=== PATIENT | male | born 1965 | race Caucasian/White ===

== ENCOUNTER 2020-11-01 12:57 | Outpatient (REF) | payer MEDICAID, SELFPAY ==
--- NOTE | 2020-11-01 | CT_ITS ---
EXAMINATION: CT ABDOMEN AND PELVIS WITHOUT CONTRAST CLINICAL INFORMATION: Flank pain COMPARISON: Previous CT of the abdomen and pelvis February 2019 TECHNIQUE: Multidetector volumetric imaging was performed from the superior aspect of the liver through the pubic symphysis. Sagittal and coronal reformatted images were obtained on the technologist's workstation. This CT examination was performed using dose optimization techniques as appropriate, variously including the following: *Automated exposure control *Adjustment of mA and/or kV according to patient size (this includes techniques or standardized protocols for targeted exams where dose is matched to indication/reason for exam; i.e. extremities or head) *Use of iterative reconstruction technique DLP: 506 mGy-cm FINDINGS: LUNG BASES: There is a 3 x 4 mm calcified pulmonary nodule at the right lung base that is stable. LIVER, GALLBLADDER, AND BILIARY TREE: The liver is normal in size and shape. No focal liver lesion is seen. The gallbladder is unremarkable with no evidence of radiopaque gallstones, gallbladder wall thickening, or obvious pericholecystic inflammatory changes. PANCREAS: Unremarkable. SPLEEN: Unremarkable. ADRENAL GLANDS: Unremarkable. KIDNEYS AND URETERS: There is a small 2 mm nonobstructing stone in the lower pole of the right kidney. There are left renal cysts. No hydronephrosis, ureteral dilatation or ureteral stone is seen. BLADDER: Not optimally distended. GASTROINTESTINAL TRACT: The small and large bowel are unremarkable. The appendix is unremarkable. ABDOMINAL WALL: There is an umbilical hernia containing fat. LYMPH NODES: Normal. VASCULAR: Unremarkable. PELVIC VISCERA: Unremarkable. OSSEOUS STRUCTURES: Unremarkable. CT/CT abdomen pelvis wo con IMPRESSION: Small nonobstructing right lower pole renal stone. No hydronephrosis. Left renal cysts.
== END 2020-11-01 12:58 | disposition home or self-care (01) ==
LOC: HO.CT 12:57
PROVIDERS: PCP Internal Medicine; Visit Provider Internal Medicine
DX: R10.9 Unspecified abdominal pain (principal)
CPT/HCPCS: 74176

== ENCOUNTER 2023-01-29 08:09 | Outpatient (REF) | payer OTHER, SELFPAY ==
[2023-01-29 08:23] LABS: MANUAL DIFF FLAG NO
[2023-01-29 09:05] LABS: Basophils Absolute Auto 0.1 X10*3/uL (0.0-0.2); Basophils Percent Auto 1.1 % (0-2); Eosinophils Absolute Auto 0.3 X10*3/uL (0.0-0.4); Eosinophils Percent Auto 4.7 % (0-4); Hematocrit 43.7 % (42.0-52.0); Hemoglobin 14.9 g/dl (14.0-18.0); Imm Gran Abs Auto 0.01 X10*3/uL (0.00-0.03); Imm Gran Pct Auto 0.2 % (0.0-0.4); Mean Corpuscular HGB Conc 34.1 g/dl (31.0-36.0); Mean Corpuscular Hemoglobin 29.3 pg (27.0-33.0); Mean Corpuscular Volume 85.9 fL (80.0-98.0); Mean Platelet Volume 9.8 fL (9.4-12.4); Monocytes Absolute Auto 0.3 X10*3/uL (0.1-1.2); Monocytes Percent Auto 5.2 % (2-11); Neutrophils Absolute Auto 3.6 x10*3/uL (2.0-8.3); Neutrophils Percent Auto 56.8 % (45-73); Platelet Count 241 X10*3/uL (160-400); Red Blood Count 5.09 X10*6/uL (4.60-5.80); Red Cell Distribution Width 11.8 % (11.0-16.0); White Blood Count 6.3 X10*3/uL (4.8-10.8)
[2023-01-29 09:06] LABS: Appearance Urine Clear; Color Urine Yellow; Glucose Urine UA Negative (Negative); Leukocyte Esterase Urine Negative (Negative); Nitrite Urine Negative (Negative); PH 5.5 (5.0-9.0); Urine Blood Negative (Negative); Urine Ketones Negative (Negative); Urine Protein Negative (Neg-Trace)
[2023-01-29 09:09] LABS: Bacteria Urine None Seen (None Seen); Hyaline Casts Urine 0-2 /LPF (0-2); RBC Urine 0-2 /HPF (0-2); Squamous Epithelial Cell Urine 0-2 /HPF (0-2); WBC Urine 0-5 /HPF (0-5)
[2023-01-29 09:18] LABS: Estimated Average Glucose 143 mg/dL; Hemoglobin A1c % 6.6 %
[2023-01-29 09:57] LABS: Creatinine Urine 267.71 mg/dL; Microalbum/Creatinine Ratio Ur 3.7 ug/mg cr
[2023-01-29 10:01] LABS: Alanine Aminotransferase 13 U/L (0-40); Alkaline Phosphatase 71 U/L (39-117); Anion Gap 10 (12-20); Aspartate Amino Transferase 14 U/L (5-37); Bilirubin Total 0.7 mg/dL (0.0-1.0); Blood Urea Nitrogen 13 mg/dL (9-16); Calcium 9.2 mg/dL (8.4-10.2); Carbon Dioxide 26 mmol/L (22-29); Chloride 108 mmol/L (96-108); Cholesterol 217 mg/dL; Estimated Glomerular Filt Rate > 60; Glucose Random 151 mg/dL (60-115); HDL Cholesterol 26 mg/dL; LDL Cholesterol Calculated 138 mg/dl; Sodium 140 mmol/L (135-145); Total Protein 6.5 g/dL (6.5-8.0); Triglycerides 267 mg/dL
[2023-01-29 10:13] LABS: Prostate Specific Antigen Scr 0.53 ng/mL (<0.05-4.0); Thyroid Stimulating Hormone 1.21 uIU/mL (0.32-4.0); Vitamin B12 364 pg/mL (200-900)
== END 2023-01-29 08:10 | disposition home or self-care (01) ==
LOC: HO.LAB 08:09
PROVIDERS: PCP Internal Medicine; Visit Provider Internal Medicine
DX: K21.9 Gastro-esophageal reflux disease without esophagitis (principal); E11.9 Type 2 diabetes mellitus without complications; E78.2 Mixed hyperlipidemia; R35.1 Nocturia; Z12.5 Encounter for screening for malignant neoplasm of prostate
CPT/HCPCS: 36415; 80053; 80061; 81001; 82043; 82607; 83036; 84153; 84443; 85025

== ENCOUNTER 2025-01-21 09:24 | Outpatient (REF) | payer BC, SELFPAY ==
[2025-01-21 09:58] LABS: MANUAL DIFF FLAG NO
[2025-01-21 10:45] LABS: Basophils Absolute Auto 0.1 X10*3/uL (0.0-0.2); Basophils Percent Auto 1.2 % (0-2); Eosinophils Absolute Auto 0.2 X10*3/uL (0.0-0.4); Eosinophils Percent Auto 3.5 % (0-4); Hemoglobin 15.4 g/dl (14.0-18.0); Imm Gran Abs Auto 0.02 X10*3/uL (0.00-0.03); Imm Gran Pct Auto 0.3 % (0.0-0.4); Lymphocytes Absolute Auto 2.2 X10*3/uL (1.2-4.9); Lymphocytes Percent Auto 31.3 % (20-40); Mean Corpuscular Hemoglobin 30.3 pg (27.0-33.0); Mean Corpuscular Volume 86.4 fL (80.0-98.0); Mean Platelet Volume 9.8 fL (9.4-12.4); Monocytes Absolute Auto 0.4 X10*3/uL (0.1-1.2); Monocytes Percent Auto 5.4 % (2-11); Neutrophils Percent Auto 58.3 % (45-73); Platelet Count 251 X10*3/uL (160-400); Red Blood Count 5.09 X10*6/uL (4.60-5.80); Red Cell Distribution Width 12.1 % (11.0-16.0); White Blood Count 6.9 X10*3/uL (4.8-10.8)
[2025-01-21 11:06] LABS: Estimated Average Glucose 140 mg/dL; Hemoglobin A1c % 6.5 % (<6.0)
[2025-01-21 11:55] LABS: Creatinine Urine 149.66 mg/dL; Microalbumin Urine < 5.0 mg/L
[2025-01-21 11:58] LABS: Alanine Aminotransferase 19 U/L (0-40); Alkaline Phosphatase 74 U/L (39-117); Anion Gap 12 (12-20); Aspartate Amino Transferase 17 U/L (5-37); Bilirubin Total 0.2 mg/dL (0.0-1.0); Blood Urea Nitrogen 20 mg/dL (9-16); Calcium 9.2 mg/dL (8.4-10.2); Carbon Dioxide 22 mmol/L (22-29); Chloride 110 mmol/L (96-108); Cholesterol 219 mg/dL (<200); Estimated Glomerular Filt Rate > 60; Free T4 (Free Thyroxine) 0.98 ng/dL (0.71-1.85); Glucose Random 148 mg/dL (60-115); HDL Cholesterol 24 mg/dL (>40); Potassium 4.2 mmol/L (3.3-5.1); Sodium 140 mmol/L (135-145); Thyroid Stimulating Hormone 1.21 uIU/mL (0.32-4.0); Total Protein 7.3 g/dL (6.5-8.0); Triglycerides 712 mg/dL (<150)
== END 2025-01-21 09:25 | disposition home or self-care (01) ==
LOC: HO.LAB 09:24
PROVIDERS: PCP Internal Medicine; Visit Provider Internal Medicine
DX: E11.9 Type 2 diabetes mellitus without complications (principal); E78.2 Mixed hyperlipidemia
CPT/HCPCS: 36415; 80053; 80061; 82043; 82570; 83036; 84439; 84443; 85025

== ENCOUNTER 2025-03-30 09:08 | Outpatient (REF) | payer BC, SELFPAY ==
--- NOTE | ~2025-03-30 | CT_ITS ---
EXAMINATION: CT ABDOMEN AND PELVIS WITHOUT AND WITH CONTRAST CLINICAL INFORMATION: Hematuria COMPARISON: March 28, 2019 TECHNIQUE: Multidetector volumetric imaging was performed of the abdomen and pelvis before and after the IV administration of 85 mL of Omnipaque 300 intravenous contrast. Sagittal and coronal reformatted images were obtained on the technologist's workstation. This CT examination was performed using dose optimization techniques as appropriate, variously including the following: *Automated exposure control *Adjustment of mA and/or kV according to patient size (this includes techniques or standardized protocols for targeted exams where dose is matched to indication/reason for exam; i.e. extremities or head) *Use of iterative reconstruction technique DLP: 733 mGy centimeter FINDINGS: LUNG BASES: The visualized lung bases are unremarkable. LIVER, GALLBLADDER, AND BILIARY TREE: The gallbladder is unremarkable with no evidence of radiopaque gallstones, gallbladder wall thickening, or obvious pericholecystic inflammatory changes. PANCREAS: Unremarkable SPLEEN: Unremarkable ADRENAL GLANDS: Unremarkable KIDNEYS AND URETERS: Multiple low attenuating nonenhancing lesions are present. Kidneys, left greater than right, consistent with benign simple renal cyst. Unenhanced kidneys demonstrate no stones. Delayed images through the kidneys demonstrate bilateral symmetry contrast excretion through the ureters and into the bladder. BLADDER: Unremarkable GASTROINTESTINAL TRACT: The small and large bowel are unremarkable. The appendix is unremarkable. ABDOMINAL WALL: 13 mm wide umbilical hernia contains normal density adipose tissue. LYMPH NODES: Normal VASCULAR: There are multifocal soft and calcified plaque is seen in the distal abdominal aorta and iliac arteries. PELVIC VISCERA: Unremarkable OSSEOUS STRUCTURES: Mild joint space narrowing and marginal osteophyte are evident involving bilateral hip joints. Minimal osteophyte formation and vacuum phenomena is noted in bilateral lower SI joints. 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 No additional findings on the unenhanced examination. CT/CT abdomen pelvis wo/w IV con IMPRESSION: Bilateral simple renal cysts are present, greater on the left. 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 Stable small fat-containing umbilical hernia. Fleischner guidelines were followed. Electronically signed by: Adam Morfin MD 03/30/2025 06:36 PM EDT
[2025-03-30] MEDS: iohexoL 350 MG/ML 100 ML INFUS..BTL 85 ML IV (10:35)
[2025-03-30 11:41] LABS: Creatinine POC 1.3 mg/dL (0.5-1.4); GFR POC > 60
== END 2025-03-30 09:09 | disposition home or self-care (01) ==
LOC: HO.CT 09:08
PROVIDERS: PCP Internal Medicine; Visit Provider Internal Medicine
DX: R31.9 Hematuria, unspecified (principal)
CPT/HCPCS: 74178; 82565; Q9967

== ENCOUNTER → 2025-03-30 09:45 | Outpatient (BNV) | payer BC, SELFPAY | PROVIDERS: PCP Internal Medicine; Visit Provider Radiology Diagnostic Radiology | DX: N28.1 Cyst of kidney, acquired (principal) | CPT/HCPCS: 74178 ==

== ENCOUNTER 2025-05-06 07:46 | Outpatient (AMB) | payer BC, SELFPAY ==
--- NOTE | 2025-05-06 08:00 | A.OFFVIS_ITS ---
Intake Visit Reasons: history of gross hematuria Intake Note: New Patient presents for initial visit for Gross Hematuria Urology Medications: none Blood Thinner: none Smoker: yes; currently vaping 3-4mos, smoked cigarettes for over 30yrs Port Surveyor Required: No Accompanied by: Self / Same As Patient Allergies No Known Allergies Allergy (Unverified 05/06/25 08:38) Medication List - Last Reconciled 05/06/25 by CHEL Fernandez-JEAN PAUL atorvastatin (Lipitor) 20 mg PO DAILY cetirizine 10 mg PO DAILY fenofibrate 160 mg PO QPM metformin ER (Glucophage XR) 500 mg PO DAILY omeprazole 40 mg PO DAILY HPI Comments Details: Beni is a very pleasant 59-year-old male patient of Dr. Newton. He has a past medical history of type 2 diabetes, GERD, hypertension, and hypercholesteremia. He presents to the office today as a new patient for gross hematuria. In discussion with the patient today he notes approximately 2-3 months ago he had a solitary event of gross hematuria. He does report a 30-35 year smoking history of approximately 1 pack per day however most recently over the last 4-6 weeks has switched to vaping. In office urinalysis results reviewed with the patient today negative microscopic hematuria. He otherwise denies any bothersome urinary issues. He denies urinary urgency, urinary frequency, incontinence, nocturia, dysuria, foul smelling urine, changes to urinary stream, flank pain, fever, and or chills. We discussed potential causes of gross hematuria as well as further workup in risks and benefits of these interventions. All questions were answered. He otherwise offers no other issues or concerns at this time. In review of patient's chart it appears PSA 02/18 0.5. PFSH Medical History Gastroesophageal reflux disease with esophagitis without hemorrhage Elevated blood pressure reading without diagnosis of hypertension Type 2 diabetes mellitus with complication, without long-term current use of insulin Hematuria Pure hypercholesterolemia Review of Systems Const All systems reviewed & are unremarkable except as noted in HPI and below Physical Exam Const General: cooperative, healthy appearing, comfortable, no acute distress, well developed, alert and awake Orientation/consciousness: patient oriented x3 Limitations: no limitations HEENT Head: Yes normal to inspection, Yes normocephalic and Yes atraumatic Ears: hearing grossly normal bilaterally Eyes General: appearance normal, both eyes and all related structures Neck Neck: Yes normal visual inspection and Yes trachea midline Chest Chest palpation & inspection: normal inspection of the chest Resp Effort & Inspection: normal respiratory effort and able to speak in complete sentences Cardio Rate: regular rate GI Inspection: Yes normal to inspection General: Yes no CVA tenderness Back/Spine/Pelvis Back: no CVA tenderness Skin General skin exam: no rashes or lesions noted Neuro General: patient oriented x3 Extrem General: Yes normal to inspection Psych Appearance: grossly normal and well kempt Mental Status: mental status grossly normal Speech and movement: Normal speech and movement present and Clear speech present Affect: normal affect Attitude: cooperative Thought process: Normal thought process present Thought content: Normal thought content present Insight: Fair insight present (Psych) Judgement: Fair judgement present (Psych) Results AMB Urinalysis, Automated UA Leukoctes 0 Red/uL Last Edit by Efe Clement CCM on 05/06/25 08:25 UA Nitrite Last Edit by Efe Clement [facility] on 05/06/25 08:25 UA Urobilinogen 0.2 mg/dL Last Edit by Efe Clement [facility] on 05/06/25 08:2 5 UA Protein 0 mg/dL Last Edit by Efe Clement [facility] on 05/06/25 08:25 UA pH 6.0 Last Edit by Efe Clement [facility] on 05/06/25 08:25 UA Blood 0 Miguel/uL Last Edit by Efe Clement [facility] on 05/06/25 08:25 UA Specific [place] 1.020 Last Edit by Efe Clement [facility] on 05/06/25 08: 25 UA Ketone Last Edit by Efe Clement [facility] on 05/06/25 08:25 UA Bilirubin 0 mg/dL Last Edit by Efe Clement [facility] on 05/06/25 08:25 UA Glucose 0 mg/dL Last Edit by COLLEEN Mcallister on 05/06/25 08:25 Results Reviewed Results Reviewed: Laboratory Last Values Urine pH (Auto) 6.0 05/06/25 08:16 Specific [place] (Auto) 1.020 05/06/25 08:16 Urine Protein (Auto) 0 mg/dL 05/06/25 08:16 Glucose (UA)(Auto) 0 mg/dL 05/06/25 08:16 Urine Blood (Auto) 0 Miguel/uL 05/06/25 08:16 Urine Bilirubin (Auto) 0 mg/dL 05/06/25 08:16 Urine Urobilinogen (Auto) 0.2 mg/dL 05/06/25 08:16 Leukocyte Esterase (Auto) 0 Red/uL 05/06/25 08:16 Assessment & Plan Assessment & Plan (1) Gross hematuria: Code(s): R31.0 - Gross hematuria Category: Medical Plan In office urinalysis results with the patient today; as noted above; will send for urine cytology. Will obtain CT urogram for further assessment evaluation. BUN and creatinine ordered for imaging. Will obtain PSA for further assessment evaluation. We discussed potential causes of gross hematuria as well as further workup in risks and benefits of these interventions. All questions were answered. We discussed the importance of limiting/quitting vaping for overall health and well-being. Follow-up next available in office cystoscopy with imaging and labs to be completed prior; or sooner with any issues, concerns, and or questions. Orders: Orders Urine Cytology Today R31.0 - Gross hematuria Blood Urea Nitrogen Today R39.15 - Urgency of urination Prostate Specific Antigen Today R31.0 - Gross hematuria AMB Urinalysis Automated Today Z13.9 - Encounter for screening, unspecified CT urogram Today R31.0 - Gross hematuria Creatinine Today R39.15 - Urgency of urination Coding Level of Care Code New Pt Level 3 (43633) Diagnoses Gross hematuria R31.0
== END 2025-05-06 08:38 | disposition home or self-care (01) ==
LOC: HO.HUSH 07:47
PROVIDERS: PCP Internal Medicine; Visit Provider Nurse Practitioner Family
DX: Z13.9 Encounter for screening, unspecified (principal); R31.0 Gross hematuria
CPT/HCPCS: 99203

== ENCOUNTER 2025-05-06 07:46 | Outpatient (REF) | payer BC, SELFPAY | END 2025-05-06 07:47 | disposition home or self-care (01) | LOC: HO.LNP 07:46 | PROVIDERS: PCP Internal Medicine; Visit Provider Nurse Practitioner Family | DX: R31.0 Gross hematuria (principal) | CPT/HCPCS: 81003; 88112 ==

== ENCOUNTER 2025-06-19 09:26 | Outpatient (AMB) | payer BC, SELFPAY ==
--- OUTSIDE RECORDS SUMMARY | 2025-06-19 09:32 | XMS_ITS | Encounter Summary ---
Author Organization [facility] Address [address] [place] [id number] Phone Care Team Providers Care Access Nurse Name Role Phone Shadi Newton MD Unavailable [phone] Sophie Monte NP Unavailable [phone] Shadi Newton MD Unavailable [phone] Shadi Newton MD Primary Care Provider [phone] Annie Pickens RN Unavailable [phone] Encounter Details Date Type Department Care Team (Late st Contact Info) Description 01/30/2023 Transcribe Orders [facility] Specimen Processing [address], [place] [id number] Shadi Newton MD [address] [place], [place] [id number] [email or web address] Social History Tobacco Use Types Packs/Day Years Used Date Smoking Tobacco: Former Cigarettes 0.3 33 0 11/13/1977 - 11/13/2010 Smokeless Tobacco: Never Comments:quit 8 years ago Alcohol Use Standard Drinks/Week Comments No 0 (1 standard drink = 0.6 oz pur e alcohol) Child or Family Care Answer Date Record ed 11 Do you have trouble with childcare or the care of a family member? I choose not to answer 01/10/2021 Education Answer Date Recorded 10 Are you interested in mor e education for yourself related to: Learning the [place] language? Completing high school, earning a high school equivalency, or applying to college? Developing job, technical, or parenting skills? I choose not to answer 01/10/2021 Are you concerned about learning? Not on file 01/10/2021 Not on file 01/10/2021 Not on file 01/10/2021 Food Answer Date Recorded 02 Within the past 12 months we worried whether our food would run out before we got money to buy more. I choose not to answer 01/10/2021 03 Within the past 12 months the food we bought just didn't last and we didn't have money to buy more. I choose not to answer 01/10/2021 Paying for Meds Answer Date Recorded 08 Do you have trouble paying for medicines? I c hoose not to answer 01/10/2021 Paying Utility Bills Answer Date Record ed 07 Do you have trouble payin g your heating or electricity bill? I choose not to answer 01/10/2021 Transportation Answer Date Recorded 01 Has the lack of transport ation kept you from medical appointments or from getting medications? No 01/10/2021 Sex and Gender Information Value Date Recorded Sex Assigned at Not on file Legal Sex Male 9:41 PM EDT Gender Identity Not on file Sexual Orientation Not on file documented as of this encounter Plan of Treatment Upcoming Encounters Date Type Department Care Team (Late st Contact Info) Description 08/17/2025 10:00 AM EDT Office Visit [facility] Internal Medicine [address] [place] [address] Shadi Newton MD [address] [place] [address] [email or web address] documented as of this encounter Visit Diagnoses Not on filedocumented in this encounter Additional Health Concerns Assessment Noted Time PHQ-2 Depression Total Score: 0 01/30/20 23 11:36 AM EDT documented as of this encounter Care Teams Access Nurse Relationship Specialty Start Date End Date Shadi Newton MD [address] [place] [address] PCP - General Internal Medicine 01/02/20 Shadi Newton MD [address] [place] [address] [email or web address] Historical LMR Provider 08/13/17 Sophie Monte NP [address] [place] [address] [email or web address] Historical LMR Provider 08/13/17 Shadi Newton MD [address] [place] [address] [email or web address] Insurance Assigned Provider 03/02/18 07/07/23 Annie Pickens, RN [address] [place] [id number] [email or web address] Crm Developer 10/04/23 10/31/23 documented as of this encounter Additional Source Comments The information contained in this document represents components of the legal health record. It is not the complete legal health record.[facility]
--- NOTE | 2025-06-19 09:55 | A.OFFVIS_ITS ---
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 He presents with his who interprets for him. The patient declines a certified funeral planning counselor. The patient is being evaluated due to episode of gross hematuria. He has history of kidney stones. Comorbidity nicotine use. The patient stopped cigarette smoking for about 17 years and has now returned to vaping. He is counseled on nicotine cessation, and nicotine as a risk factor for urinary tract cancers. The patient had a CT scan abdomen and pelvis in March with and without IV contrast benign renal cysts noted negative for renal masses or kidney stones, no hydronephrosis. Urine cytology-05/06/2025-negative for malignant cells. Cystoscopy findings: No suspicious bladder lesions. Prostate is not obstructive. Plan is for continued monitoring by our nurse practitioner we will check renal ultrasound and UA in 9 months. 05/06/25--Beni is a very pleasant 59-year-old male patient of Dr. Newton. He has a past medical history of type 2 diabetes, GERD, hypertension, and hypercholesteremia. He presents to the office today as a new patient for gross hematuria. In discussion with the patient today he notes approximately 2-3 months ago he had a solitary event of gross hematuria. He does report a 30-35 year smoking history of approximately 1 pack per day however most recently over the last 4-6 weeks has switched to vaping. In office urinalysis results review ed with the patient today negative microscopic hematuria. He otherwise denies any bothersome urinary issues. He denies urinary urgency, urinary frequency, incontinence, nocturia, dysuria, foul smelling urine, changes to urinary stream, flank pain, fever, and or chills. We discussed potential causes of gross hematuria as well as further workup in risks and benefits of these interventions. All questions were answered. He otherwise offers no other issues or concerns at this time. In review of patient's chart it appears PSA 02/18 0.5. PFSH Medical History Gastroesophageal reflux disease with esophagitis without hemorrhage Elevated blood pressure reading without diagnosis of hypertension Type 2 diabetes mellitus with complication, without long-term current use of insulin Hematuria Pure hypercholesterolemia Review of Systems Const All systems reviewed & are unremarkable except as noted in HPI and below Reports no additional complaints Eyes Reports no additional complaints ENT Reports no additional complaints Card Reports no additional complaints Resp Reports no additional complaints GI Reports no additional complaints Reports as per HPI Musc Reports no additional complaints Skin/Breast Reports system reviewed and no additional complaints, except as documented Neuro Reports no additional complaints Psych Reports no additional complaints Endo Reports no additional complaints Moises/Lymph Reports no additional complaints Aller/Immun Reports no additional complaints Office Procedures Cystoscopy Consent Discussed risk and benefit or proposed procedure with the patient. Information consent for procedure given to the patient. Discussed technical aspects, risks, benefits and alternatives in full. Addressed all of the patient's questions and concerns regarding the procedure. The patient demonstrated knowledge and understanding. They wish to proceed with this procedure. Preparation The patient was prepped in the usual manner. A flake miller wheat and oats was present and in the room. Genitalia was prepped with betadine solution in a sterile manner. Lidocaine Jelly 2% was placed into the urethra and 16Fr flexible Olympus cystoscope was inserted into the meatus after adequate lubrication. Procedure Time out per protocol performed. The flexible cystoscope is passed transurethrally: The bladder was inspected in its entirety with utilization retroflexion displaying: Tumor(s): no suspicious bladder lesions visualized Trabeculation: NA Mucosal Erthema: NA Orifices: normal shape and position Urethra: normal Cystoscopy findings: prostatic urethra non obstructive, no suspicious bladder lesions visualized [id number] DISPOSABLE SCOPE URO-G FLEXIBLE SCOPE Procedure code (CPT) selection complete Office Meds lidocaine HCl 2 % mucosal jelly in applicator Performing Provider: Patrcik Tran MD [place] [facility] [place] [facility] Administered by: Yana León RN on 06/19/25 10:11 Dose Route Admin Location Dispensed Lot Number Expiration Date NDC Early Childhood Specialist 10 mL intra-urethral 20 mL ciprofloxacin HCl 500 mg tablet Performing Provider: Patrick Tran MD [place] [facility] [place] [facility] Administered by: Yana León RN on 06/19/25 10:11 Dose Route Admin Location Dispensed Lot Number Expiration Date NDC Early Childhood Specialist 500 mg PO 1 tab phenazopyridine 200 mg tablet Performing Provider: Patrick Tran MD [place] [facility] [place] [facility] Administered by: Yana León RN on 06/19/25 10:11 Dose Route Admin Location Dispensed Lot Number Expiration Date NDC Early Childhood Specialist 200 mg PO 1 tab Results Reviewed Results Reviewed: Date of Service: 03/30/25 EXAMINATION: CT ABDOMEN AND PELVIS WITHOUT AND WITH CONTRAST CLINICAL INFORMATION: Hematuria COMPARISON: March 28, 2019 TECHNIQUE: Multidetector volumetric imaging was performed of the abdomen and pelvis before and after the IV administration of 85 mL of Omnipaque 300 intravenous contrast. Sagittal and coronal reformatted images were obtained on the technologist's workstation. This CT examination was performed using dose optimization techniques as appropriate, variously including the following: *Automated exposure control *Adjustment of mA and/or kV according to patient size (this includes techniques or standardized protocols for targeted exams where dose is matched to indication/reason for exam; i.e. extremities or head) *Use of iterative reconstruction technique DLP: 733 mGy centimeter FINDINGS: LUNG BASES: The visualized lung bases are unremarkable. LIVER, GALLBLADDER, AND BILIARY TREE: The gallbladder is unremarkable with no evidence of radiopaque gallstones, gallbladder wall thickening, or obvious pericholecystic inflammatory changes. PANCREAS: Unremarkable SPLEEN: Unremarkable ADRENAL GLANDS: Unremarkable KIDNEYS AND URETERS: Multiple low attenuating nonenhancing lesions are present. Kidneys, left greater than right, consistent with benign simple renal cyst. Unenhanced kidneys demonstrate no stones. Delayed images through the kidneys demonstrate bilateral symmetry contrast excretion through the ureters and into the bladder. BLADDER: Unremarkable GASTROINTESTINAL TRACT: The small and large bowel are unremarkable. The appendix is unremarkable. ABDOMINAL WALL: 13 mm wide umbilical hernia contains normal density adipose tissue. LYMPH NODES: Normal VASCULAR: There are multifocal soft and calcified plaque is seen in the distal abdominal aorta and iliac arteries. PELVIC VISCERA: Unremarkable OSSEOUS STRUCTURES: Mild joint space narrowing and marginal osteophyte are evident involving bilateral hip joints. Minimal osteophyte formation and vacuum phenomena is noted in bilateral lower SI joints. 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 No additional findings on the unenhanced examination. IMPRESSION: Bilateral simple renal cysts are present, greater on the left. Other findings as above Assessment & Plan Assessment & Plan (1) Gross hematuria: Code(s): R31.0 - Gross hematuria Category: Medical (2) History of kidney stones: Code(s): Z87.442 - Personal history of urinary calculi Category: Medical (3) Nicotine dependence: Code(s): F17.200 - Nicotine dependence, unspecified, uncomplicated Category: Medical Plan Plan is for continued monitoring by our nurse practitioner we will check renal ultrasound and UA in 9 months. Orders: Orders AMB Cystoscopy Today R31.0 - Gross hematuria US renal BI 9 Months Z87.442 - Personal history of urinary calculi Patient Instructions: The patient had an opportunity to ask questions regarding treatment plan. The patient expressed understanding and agreement with the above treatment plan. The patient is aware they should contact our office by phone for worsening of their current condition or the appearance of new symptoms. Compliance is encouraged with any medications and followup testing that is ordered. It is a privilege to be allowed the opportunity to participate in the urologic care of your patient. If you have any questions or concerns regarding treatment for the above conditions please do not hesitate to contact me. The office telephone contact is [phone]. This note is constructed in part using voice recognition software. While every effort has been made to ensure accuracy core drill operator errors may have been included. Yours sincerely, Patrick Tran MD Coding Level of Care Code Est Pt Level 3 (32870) Diagnoses Gross hematuria R31.0 History of kidney stones Z87.442 Nicotine dependence F17.200 CPT Codes Cystoscopy - CPT: [id number] ([id number])
== END 2025-06-19 11:07 | disposition home or self-care (01) ==
LOC: HO.HUSH 09:27
PROVIDERS: PCP Internal Medicine; Visit Provider Urology
DX: R31.0 Gross hematuria (principal); Z87.442 Personal history of urinary calculi; F17.200 Nicotine dependence, unspecified, uncomplicated; Z13.9 Encounter for screening, unspecified
CPT/HCPCS: 52000

== ENCOUNTER → 2025-06-19 09:26 | Outpatient (BNVA) | payer BC, SELFPAY | PROVIDERS: PCP Internal Medicine; Visit Provider Urology | DX: R31.0 Gross hematuria (principal) | CPT/HCPCS: 52000; 81003 ==

== ENCOUNTER → 2025-10-05 08:19 | Outpatient (REF) | payer BC, SELFPAY ==
--- NOTE | 2025-10-05 08:21 | CA_ITS ---
Acquisition Time: 2025-10-05 08:24:39 Total Exercise Time: 00:07:05 Test Indications: CHEST PAIN Medications: Protocol: ROLF Max HR: 139 BPM 86% of Pred: 160 BPM Max BP: 148/84 mmHG Max Work Load: 8.6 METS Exercise stress test with exercise 7 mins 5 secs of Rolf Protocol, achieving 89% MPHR, with reports of SOB, no chest pain, with isolated PVCs, with normotensive repsonse to exercise. Without any EKG changes meeting criteria for ischemia. In recovery, breathing improved quickly and pt feeling back to baseline. Test reviewed with Dr. Condon. Referred By: Shadi Newton Electronically Signed By: Ankit Hartmann
--- OUTSIDE RECORDS SUMMARY | 2025-10-05 09:25 | XMS_ITS | Encounter Summary ---
Author Organization [facility] Address [address] [facility] [address] [place] [id number] Phone Care Team Providers Care Patrol Police Lieutenant Name Role Phone Shadi Newton MD Unavailable [phone] Sophie Monte NP Unavailable [phone] Shadi Newton MD Primary Care Provider [phone] Reason for Visit * Reason Onset Date Comments Stress test faxed 08/17/2025 Encounter Details Date Type Department Care Team (Late st Contact Info) Description 08/17/2025 Telephone [employer] [facility] Internal Medicine [address] [place] [place], [place] [id number] Shadi Newton MD [address] [place], [place] [id number] [email or web address] Stress test faxed Social History Tobacco Use Types Packs/Day Years Used Date Smoking Tobacco: Former Cigarettes 0.3 33 0 11/13/1977 - 11/13/2010 Smokeless Tobacco: Never Comments:quit 8 years ago Smokes 2-3 cigarettes Qweek started smoking again 10/2024 Alcohol Use Standard Drinks/Week Comments No 0 (1 standard drink = 0.6 oz pur e alcohol) Child or Family Care Answer Date Record ed Do you have problems with on e of the following making it difficult for you to work, study, or receive health care? No 08/10/2025 Education Answer Date Recorded Are you interested in help w ith more adult education (for example, completing high school, GED, job training, learning the Fijian language, technical skills, or developing parenting skills)? No 08/10/2025 Are you concerned about learning? Not on file 08/10/2025 No 08/10/2025 Yes 08/10/2025 Food Answer Date Recorded Within the past 6 months we worried whether our food would run out before we got money to buy more. Never True 08/10/2025 Within the past 6 months the food we bought just didn't last and we didn't have enough money to get more. Never True Residential Stability Answer Date Recor ded What is your housing situation today? I have hannah sing 08/10/2025 How many times have you move d in the past 12 months? Zero (I did not move) 08/10/2025 Paying for Meds Answer Date Recorded Do you have trouble paying for medicines? No 08/10/2025 Paying Utility Bills Answer Date Record ed Do you have trouble paying your heating or elect ricity bill? No 08/10/2025 Transportation Answer Date Recorded Has the lack of transportati on kept you from medical appointments or from getting medications? No 08/10/2025 Digital Access Answer Date Recorded No 08/10/2025 Yes 08/10/2025 Do you have reliable internet access at home? Ye s 08/10/2025 Do you have a device (e.g., phone, tablet, computer) with a working camera? Yes 08/10/2025 SNAP & WIC Answer Date Recorded Do you receive benefits from SNAP (the Supplemental Nutrition Assistance Program) or the Food Stamp Program? Yes 08/15/2023 SNAP is a free program, interested in learning m ore? Not on file 08/15/2023 Can we help you enroll in SNAP? Not on file 08/15/2023 Benefits received from WIC? Not on file 07/29 WIC is a free program, interested in learning mo re? Not on file 08/15/2023 Can we help you enroll in WIC? Not on file 1 Intimate Partner Violence Answer Date R ecorded Denied Basic Needs Not on file 08/10/2025 In the past 12 months have y ou been in a relationship with a person who hurts, threatens, or tries to control you? No 08/10/2025 Worried food would run out Not on file 08/10 In the past 12 months have y ou been in a relationship with a person who hurts, threatens, or tries to control you? No 08/10/2025 Sex and Gender Information Value Date Recorded Sex Assigned at Not on file Legal Sex Male 9:41 PM EDT Gender Identity Not on file Sexual Orientation Not on file documented as of this encounter Progress Notes * Ankush Mitchell - 08/17/2025 11:19 AM EDT Faxed stress test order to [facility] Scheduling at [phone]. They will call to schedule patient. documented in this encounter Plan of Treatment Upcoming Encounters Date Type Department Care Team (Late st Contact Info) Description 01/06/2026 10:30 AM EDT Office Visit [facility] Internal Medicine [address] [place] [address] Shadi Newton MD [address] [place] [address] documented as of this encounter Visit Diagnoses Not on filedocumented in this encounter Additional Health Concerns Assessment Noted Time PHQ-2 Depression Total Score: 0 08/10/20 25 12:22 PM EDT documented as of this encounter Care Teams Patrol Police Lieutenant Relationship Specialty Start Date End Date Shadi Newton MD [address] [place] [address] PCP - General Internal Medicine 01/02/20 Shadi Newton MD [address] [place] [phone] Historical LMR Provider 08/13/17 Sophie Monte NP [address] [place] [id number] [email or web address] Historical LMR Provider 08/13/17 documented as of this encounter Additional Source Comments The information contained in this document represents components of the legal health record. It is not the complete legal health record.[facility]
--- OUTSIDE RECORDS SUMMARY | 2025-10-05 09:25 | XMS_ITS | Encounter Summary ---
Author Organization [facility] Address [address] [facility] [address] [place] [address] Phone Care Team Providers Care Cafeteria Aide Name Role Phone Shadi Newton MD Unavailable [phone] Sophie Monte NP Unavailable [phone] Shadi Newton MD Unavailable [phone] Shadi Newton MD Primary Care Provider [phone] Annie Pickens RN Unavailable [phone] Encounter Details Date Type Department Care Team (Late st Contact Info) Description 01/30/2023 Transcribe Orders [facility] Specimen Processing [address] [place] [address] Shadi Newton MD [address] [place] [address] [email or web address] Social History Tobacco Use [...] education for yourself related to: Learning the Setsw[place] language? Completing high school, earning a high [...] Description 01/06/2026 10:30 AM EDT Office Visit [facility] Internal Medicine [address] [place] [address] Shadi Newton MD [address] [place] [address] [email or web address] documented as of this encounter Visit Diagnoses Not on filedocumented in this encounter Additional Health Concerns Assessment Noted Time PHQ-2 Depression Total Score: 0 01/30/20 23 11:36 AM EDT documented as of this encounter Care Teams Cafeteria Aide Relationship Specialty Start Date End Date Shadi Newton MD [address] [place] [address] [email or web address] PCP - General Internal Medicine 01/02/20 Shadi Newton MD [address] [place] [address] [email or web address] Historical LMR Provider 08/13/17 Sophie Monte NP [address] [place] [address] [email or web address] Historical LMR Provider 08/13/17 Shadi Newton MD [address] [place] [address] [email or web address] Insurance Assigned Provider 03/02/18 07/07/23 Annie Pickens, RN [address] [place] [id number] [email or web address] [facility] [employer] Sales Representative 10/04/23 10/31/23 documented as of this encounter Additional Source Comments The information contained in this document represents components of the legal health record. It is not the complete legal health record.[facility]
--- OUTSIDE RECORDS SUMMARY | 2025-10-05 09:25 | XMS_ITS | Clinical Summary ---
Author Organization [facility] Address [address] [facility] [address] [place] [address] Phone Care Team Providers Care Leather Sprayer Name Role Phone Shadi Newton MD Unavailable [phone] Sophie Monte NP Unavailable [phone] Shadi Newton MD Primary Care Provider [phone] Allergies No known active allergies Medications omeprazole (PRILOSEC) 40 MG capsuleIndications: Gastroesophageal reflux disease without esophagitis Take 1 capsule (40 mg total) by mouth daily. 90 capsule 3 5 Active cetirizine (ZYRTEC) 10 MG tabletIndications:R brynn and other nonspecific skin eruption Take 1 tablet (10 mg total) by mouth daily. 90 tablet 3 5 Active fenofibrate (LOFIBRA) 160 MG tabletIndications:M ixed hyperlipidemia Take 1 tablet (160 mg total) by mouth daily with dinner. 90 tablet 2 5 Active hydrocortisone 2.5 % creamIndications:It reema APPLY TO AFFECTED AREA TWICE A DAY. 28 g 1 5 Active ibuprofen (ADVIL,MOTRIN) 800 MG tabletIndications:C hronic bilateral low back pain without sciatica Take 1 tablet (800 mg total) by mouth every 8 (eight) hours as needed for pain (specific location in comments). 30 tablet 5 Active Active Problems Problem Noted Date Diagnosed Date Rash and other nonspecific skin eruption 024 Assessment & Plan (04/18/2024 3:13 PM EDT): Rash of unclear etiology. Stop triamcinolone. Begin clobetasol for maximum 2 weeks only to affected area. Plan prednisone with caution if the clobetasol is not effective. Discussed risk of prednisone with T2DM. He is agreeable to plan. I asked him to call by next week to let us know if area is improving. Will also begin cetirizine 10 mg daily concurrently. He requested referral for allergy workup, placed. Plan CBC if symptoms not improving. Type 2 diabetes mellitus wit hout complication, without long-term current use of insulin 01/11/2021 Tinea pedis of both feet 11/09/2020 Onychomycosis 11/09/2020 Cough 01/02/2020 Anxiety disorder 03/07/2019 Depression 03/07/2019 Gastro-esophageal reflux disease with esophagiti s 03/07/2019 Impaired fasting glucose 03/07/2019 Mixed hyperlipidemia 03/07/2019 Numbness 03/07/2019 Encounters Date Type Department Care Team Description 08/19/2025 Telephone [facility] Internal Medicine [address] [place] [address] Shadi Newton MD letter 08/17/2025 11:36 AM EDT - 08/17/2025 11:59 PM EDT Hospital Encounter [facility] [address] [place] [address] Shadi Newton MD Discharge Disposition: Home or Self Care 08/17/2025 10:00 AM EDT Office Visit [facility] Internal Medicine [address] [place] [address] Shadi Newton MD Miranda-Leon, [place] Routine general medical examination at a health care facility (Primary Dx); Flu vaccine need; Screen for colon cancer; Snoring; Fatigue, unspecified type; Atypical chest pain 08/17/2025 Telephone [facility] Internal Medicine [address] [place] [address] Shadi Newton MD Stress test faxed 07/27/2025 Refill [facility] Internal Medicine [address] [facility] [place] [address] Shadi Newton MD Medication Refill 07/27/2025 Telephone [facility] Internal Medicine [address] [place] [address] Shadi Newton MD Forms & Paperwork from Last 3 Months Immunizations Immunization Administration Dates Next Due COVID-19 (Pre-08/20) Pfizer Vaccine, mRNA, PF ,01/15/2021 INFLUENZA, SPLIT VIRUS, TRIVALENT PF 08/17/2025, 10/25/2016 Influenza Quadrivalent Preservative Free IM 07/29,08/10/2020 Influenza trivalent preservative free intraderma l 12/09/2013,08/04/2013 Pneumococcal conjugate PCV20 05/25/2025 Pneumococcal polysaccharide PPSV23 04/19/2021 Tdap 04/17/2019,08/06/2009 Family History Medical History Relation Comments Diabetes mellitus Maternal Aunt Diabetes mellitus Mother Breast cancer Sister Relation Status Comments Father Alive Maternal Aunt Alive Mother Sister age 56 Social History Tobacco Use Types Packs/Day Years Used Date Smoking Tobacco: Former Cigarettes 0.3 33 0 11/13/1977 - 11/13/2010 Smokeless Tobacco: Never Tobacco Cessation:Counseling Given: Not Answered Comments:quit 8 years ago Smokes 2-3 cigarettes [...] high school, GED, job training, learning the [place] language, technical skills, or developing parenting skills)? [...] your housing situation today? I have hannah bruce 08/10/2025 How many times have you move [...] on file Sexual Orientation Not on file Last Filed Vital Signs Vital Sign Reading Time Taken Comments Blood Pressure 136/84 08/17/2025 9:53 AM EDT Pulse 56 08/17/2025 9:53 AM EDT Temperature 36.7 C (98 F) 08/17/2025 9:53 AM EDT Respiratory Rate 20 05/25/2025 4:40 PM EDT Oxygen Saturation 96% 08/17/2025 9:53 AM EDT Inhaled Oxygen Concentration - - Weight 87.3 kg (192 lb 6.4 oz) 08/17/2025 9:53 A M EDT Height 183 cm (6' 0.05 ) 08/17/2025 9:53 AM EDT Body Mass Index 26.06 08/17/2025 9:53 AM EDT Plan of Treatment Upcoming Encounters Date Type Department Care Team (Late st Contact Info) Description 01/06/2026 10:30 AM EDT Office Visit [facility] Internal Medicine [address] [place] [address] Shadi Newton MD [address] [place] [address] [email or web address] Health Maintenance Due Date Last Done Comments COLOGUARD 2010 FIT TEST 2010 FOBT 2010 SIGMOIDOSCOPY 2010 VIRTUAL COLONOSCOPY 2010 ZOSTER VACCINES (1 of 2) 2015 DIABETIC EYE EXAM 02/02/2022 02/02/2021 COVID-19 VACCINE ( season) 2025 02/05/2021, 01/15/2021 COLONOSCOPY 09/07/2025 09/07/2015 COLORECTAL CANCER SCREENING 09/07/2025 BLOOD PRESSURE 02/15/2026 08/17/2025 HEMOGLOBIN A1C 02/15/2026 08/17/2025, 12/28, 08/15/2023, Additional history exists DEPRESSION SCREENING 08/10/2026 08/10/2025 LIPID PANEL 08/17/2026 08/17/2025, 12/28, 01/21/2025, Additional history exists SMOKING Hx and SMOKELESS TOBACCO SCREENING 08/17/2026 08/17/2025 URINE MICROALBUMIN/CREATININE RATIO 08/17/2026 08/17/2025, 01/21/2025, 08/15/2023, Additional history exists Adult Td,Tdap Booster 04/17/2029 04/17/2019, 009 RSV VACCINE (1 - 1-dose 75+ series) 2040 HEPATITIS C SCREENING Completed 08/10/2020 , 08/10/2020, 04/08/2020 HIV ONE-TIME SCREENING (18-65 YEARS) Completed 08/10/2020 PNEUMOCOCCAL VACCINES (50+ years) Completed 05/25/2025, 04/19/2021 INFLUENZA VACCINE Completed 08/17/2025, , 08/10/2020, Additional history exists HEPATITIS A VACCINES Aged Out No long er eligible based on patient's age to complete this topic HIB VACCINES Aged Out No longer eligi ble based on patient's age to complete this topic MENINGOCOCCAL VACCINES (ACWY) Aged Out No longer eligible based on patient's age to complete this topic MENINGOCOCCAL VACCINES (B) Aged Out N o longer eligible based on patient's age to complete this topic Medical Devices Not on file Procedures Procedure Name Priority Date/Time Associated Diagnosis Comments MICROALBUMIN/CREATI NINE RATIO, RANDOM URINE Routine 08/17/2025 11:45 AM EDT Type 2 diabetes mellitus without complication, without long-term current use of insulin LIPASE Routine 08/17/2025 11:37 AM EDT Mixed hyperlipidemia Type 2 diabetes mellitus without complication, without long-term current use of insulin PSA (SCREENING) Routine 08/17/2025 11:37 AM EDT Screening for prostate cancer CREATINE KINASE (CK) Routine 08/17/2025 11:37 AM EDT Myalgia TSH WITH REFLEX Routine 08/17/2025 11:37 AM EDT Type 2 diabetes mellitus without complication, without long-term current use of insulin Mixed hyperlipidemia HEMOGLOBIN A1C Routine 08/17/2025 11:37 AM EDT Type 2 diabetes mellitus without complication, without long-term current use of insulin DIRECT LDL Routine 08/17/2025 11:37 AM EDT Mixed hyperlipidemia CBC AND DIFFERENTIAL Routine 08/17/2025 11:37 AM EDT Type 2 diabetes mellitus without complication, without long-term current use of insulin LIPID PANEL Routine 08/17/2025 11:37 AM EDT Pure hypercholesterolemia COMPREHENSIVE METABOLIC PANEL (CMP) Routine 08/17/2025 11:37 AM EDT Type 2 diabetes mellitus without complication, without long-term current use of insulin Mixed hyperlipidemia DIABETES EYE EXAM FOR RESULT ENTRY ONLY Routine 02/02/2021 HEPATITIS C ANTIBODY, QUALITATIVE Routine 08/10/2020 12:00 PM EDT Need for hepatitis C screening test COLONOSCOPY FOR RESULT ENTRY ONLY Routine 09/07/2015 from Last 3 Months or Most Recently Relevant to Health Maintenance Results * Microalbumin/creatinine ratio, random urine (08/17/2025 11:45 AM EDT) URINE MICROALBUMIN <1.2 0 - 2.3 mg/dL [facility] URINE CREATININE 136 mg/dL [facility] MICROALB/CRE RATIO NOT CALCULATED 0 - 20 mg/g Cre [facility] Comment:due to Microalbumin <1.2 Urine (Urine) 08/17/2025 11: 45 AM EDT 08/17/2025 11:47 AM EDT us Shadi Newton MD LAB URINE ORDERABLES Final Re sult [facility] [address] [place] [address] * (ABNORMAL) DIRECT LDL (08/17/2025 11:37 AM EDT) Direct LDL 156(H) <100 mg/dL [id number] Comment: (NOTE) Greatly elevated Triglycerides values (>1200 mg/dL) interfere with the dLDL assay. Desirable range <100 mg/dL for primary prevention; <70 mg/dL for patients with CHD or diabetic patients with > or = 2 CHD risk factors. Blood 08/17/2025 11:3 7 AM EDT 08/17/2025 11:43 AM EDT us Shadi Newton MD LAB BLOOD BKR ORDERABLES Esmer dubose Result [id number] [address] [address], [facility] * (ABNORMAL) Comprehensive metabolic panel (08/17/2025 11:37 AM EDT) SODIUM 143 133 - 146 mmol/L [facility] POTASSIUM 4.5 3.3 - 5.1 mmol/L [facility] CHLORIDE 106 96 - 108 mmol/L [facility] CO2 25 21 - 35 mmol/L [facility] BUN 17 6 - 19 mg/dL [facility] CREATININE 1.10 0.5 - 1.5 mg/dL [facility] GLUCOSE 152(H) 70 - 99 mg/dL [facility] ALBUMIN 4.3 3.9 - 4.8 g/dL [facility] TOTAL PROTEIN 7.3 6.5 - 8.0 g/dL [facility] CALCIUM 9.9 8.4 - 10.3 mg/dL [facility] ALKALINE PHOSPHATASE 72 39 - 117 U/L [facility] TOTAL BILIRUBIN 0.3 0.0 - 1.2 mg/dL [facility] AST 17 0 - 37 U/L [facility] ALT 17 0 - 40 U/L [facility] GLOBULIN 3.0 1 - 4.8 g/dL [facility] EGFR 77 >59 mL/min/1.7 3m2 [facility] Comment:Estimated glomerular filtration rate calculated using the CKD-EPI refit equation. ANION GAP 17 10 - 20 mmol/L [facility] Blood 08/17/2025 11:3 7 AM EDT 08/17/2025 11:43 AM EDT us Shadi Newton MD LAB BLOOD BKR ORDERABLES Esmer l Result [address] [address] * TSH with reflex (08/17/2025 11:37 AM EDT) TSH 1.29 0.27 - 4.20 uIU/mL [facility] Blood 08/17/2025 11:3 7 AM EDT 08/17/2025 11:43 AM EDT us Shadi Newton MD LAB BLOOD BKR ORDERABLES Esmer dubose Result Performing Organization Address [facility] Co de Phone Number [address] [address] * CBC and differential (08/17/2025 11:37 AM EDT) WBC 6.20 4.00 - 11.00 K/uL [facility] RBC 5.06 4.50 - 5.90 M/uL [facility] HGB 14.6 13.5 - 17.5 g/dL [facility] HCT 44.0 41.0 - 53.0 % [facility] PLT 231 150 - 450 K/uL [facility] MCV 87.0 80.0 - 100.0 [facility] MCH 28.9 27.0 - 31.0 pg [facility] MCHC 33.2 32.0 - 36.0 g/dL [facility] RDW 11.9 11.5 - 14.5 % [facility] MPV 10.1 8.4 - 12.0 [facility] NRBC 0.00 0.00 /100 WBCs [facility] ABSOLUTE NRBC 0.00 0.00 K/uL [facility] DIFF METHOD Auto [facility] NEUTS 62.7 48.0 - 76.0 % [facility] LYMPHS 26.5 18.0 - 41.0 % [facility] MONOS 6.0 4.0 - 11.0 % [facility] EOS 3.2 0.0 - 5.0 % [facility] BASOS 1.3 0.0 - 1.5 % [facility] Granulocytes, immature (%) 0.3 0.0 - 0.9 % [facility] ABSOLUTE NEUTS 3.89 1.92 - 7.60 K/uL [facility] ABSOLUTE LYMPHS 1.64 0.72 - 4.10 K/uL [facility] ABSOLUTE MONOS 0.37 0.16 - 1.10 K/uL [facility] ABSOLUTE EOS 0.20 0.00 - 0.50 K/uL [facility] ABSOLUTE BASOS 0.08 0.00 - 0.15 K/uL [facility] Granulocytes, immature 0.02 0.00 - 0.09 K/uL [facility] Blood 08/17/2025 11:3 7 AM EDT 08/17/2025 11:43 AM EDT us Shadi Newton MD LAB BLOOD BKR ORDERABLES Esmer l Result [address] [address] * PSA (screening) (08/17/2025 11:37 AM EDT) PSA 0.76 0 - 4.00 ng/mL [facility] Comment: Test Methodology Kirt [id number] Patient results determined by assays using different manufacturers or methods may not be comparable. Blood 08/17/2025 11:3 7 AM EDT 08/17/2025 11:42 AM EDT us Shadi Newton MD LAB BLOOD BKR ORDERABLES Esmer l Result [address] [address] * Lipase (08/17/2025 11:37 AM EDT) LIPASE 31 16 - 63 U/L [facility] Blood 08/17/2025 11:3 7 AM EDT 08/17/2025 11:43 AM EDT us Shadi Newton MD LAB BLOOD BKR ORDERABLES Esmer l Result Performing Organization Address [facility]/ZIP Co de Phone Number [address] [address] * (ABNORMAL) Hemoglobin A1c (08/17/2025 11:37 AM EDT) HEMOGLOBIN A1C 6.7(H) 4.3 - 5.8 % [facility] Blood 08/17/2025 11:3 7 AM EDT 08/17/2025 11:42 AM EDT Shadi Newton MD LAB BLOOD BKR ORDERABLES Esmer l Result Performing Organization Address [facility] Co de Phone Number [address] [address] * CPK (creatine kinase) (08/17/2025 11:37 AM EDT) CREATINE KINASE 73 35 - 232 U/L [facility] Blood 08/17/2025 11:3 7 AM EDT 08/17/2025 11:43 AM EDT Shadi Newton MD LAB BLOOD BKR ORDERABLES Esmer l Result Performing Organization Address [facility] Co de Phone Number [address] [address] * (ABNORMAL) Lipid panel (08/17/2025 11:37 AM EDT) HDL 35 mg/dL [facility] Comment: Interpretation <40 mg/dL: Low HDL cholesterol (major risk factor for CHD) Greater than or equal to 60 mg/dL: High HDL cholesterol ( negative risk factor for CHD) HDL - cholesterol is affected by a number of factors, e.g. smoking, excerise, hormones, sex and age. CHOLESTEROL 235 0 - 240 mg/dL [facility] TRIGLYCERIDES 210(H) 30 - 160 mg/dL [facility] LDL 158(H) 50 - 129 mg/dL [facility] Comment: LDL levels in terms of risk for coronary heart disease: <100 mg/dL: Optimal 100-129 mg/dL: Near or above optimal 130-159 mg/dL: Borderline high 160-189 mg/dL: High >190 mg/dL: Very High CARDIAC RISK RATIO 6.7(H) 3.4 - 5.0 [facility] Blood 08/17/2025 11:3 7 AM EDT 08/17/2025 11:42 AM EDT Shadi Newton MD LAB BLOOD BKR ORDERABLES Esmer l Result Performing Organization Address [facility] Co de Phone Number [address] [address] * DIABETES EYE EXAM FOR RESULT ENTRY ONLY (02/02/2021) Historical Provider HEALTH MAINTENANCE Final Result * Hepatitis C antibody, qualitative (08/10/2020 12:00 PM EDT) Pathologist [facility] HCV NON-REACTIV E NON-REACTI VE [facility] Blood 08/10/2020 12:0 0 PM EDT 08/10/2020 12:07 PM EDT Shadi Newton MD LAB BLOOD BKR ORDERABLES Esmer l Result Performing Organization Address [facility]/ZIP Co de Phone Number [address] [address] * COLONOSCOPY FOR RESULT ENTRY ONLY (09/07/2015) Pathologist [facility] Colonoscopy 10 yr recall Historical Provider HEALTH MAINTENANCE Final Result from Last 3 Months or Most Recently Relevant to Health Maintenance Insurance [facility] [address] [place] [phone] [address] [place] [phone] Care Teams Leather Sprayer Relationship Specialty Start Date End Date Shadi Newton MD [address] [place] [address] [email or web address] PCP - General Internal Medicine 01/02/20 Shadi Newton MD [address] [place] [address] Historical LMR Provider 08/13/17 Sophie Monte NP [address] [place] [address] [email or web address] Historical LMR Provider 08/13/17 Additional Source Comments The information contained in this document represents components of the legal health record. It is not the complete legal health record.[facility]
== END ==
LOC: HO.CARD 08:19
PROVIDERS: PCP Internal Medicine; Visit Provider Internal Medicine
DX: R07.89 Other chest pain (principal)
CPT/HCPCS: 93017

== ENCOUNTER → 2025-10-05 08:21 | Outpatient (BNV) | payer BC, SELFPAY | PROVIDERS: PCP Internal Medicine | DX: I49.3 Ventricular premature depolarization (principal); R06.02 Shortness of breath | CPT/HCPCS: 93016; 93018 ==